=== PATIENT | female | born 1950 | race Caucasian/White ===

== ENCOUNTER 2020-02-12 17:01 | Emergency (ER) | payer MEDICARE, BC, SELFPAY ==
--- NOTE | ~2020-02-12 | US_ITS ---
EXAMINATION:US venous doppler LE RT INDICATION:Right leg swelling TECHNIQUE: Multiple grayscale, color flow and Doppler images of the right lower extremity deep venous systems were obtained and reviewed. COMPARISON:12/31/2018 FINDINGS: The common femoral, superficial femoral and popliteal veins demonstrate normal respiratory variation, augmentation and compressibility. Color flow is also seen within the posterior tibial, gr eater saphenous and profunda veins. The peroneal vein not visualized. IMPRESSION: 1: No lower extremity deep venous thrombosis. Reviewed, dictated and finalized at location A.
[2020-02-12 17:12] VITALS: BP 148/75; PULSE 78; RESP 20; TEMP 36.6; O2SAT 95
[2020-02-12 18:30] VITALS: BP 142/70; PULSE 70; RESP 14; TEMP 36.8; O2SAT 99
--- NOTE | 2020-02-12 19:01 | ED.EXTPRO ---
HPI - Extremity Problem General Chief complaint: Extremity Problem,Nontraumatic Stated complaint: R LEG SWELLING Time Seen by Provider: 02/12/20 19:01 Source: patient and family Mode of arrival: wheelchair Limitations: no limitations History of Present Illness HPI Narrative: Patient is a 6-year-old female with a history of end-stage renal disease, on nightly peritoneal dialysis, kidney failure, congestive heart failure, who presents for evaluation of right lower leg swelling. Patient reports her right leg has been swollen since Wednesday, worsening swelling over the past 72 hours. She reports a tightness in the right lower leg. She denies redness, rash, blister, or injury. Patient was seen by her ditto machine operator and placed on diuretics. She started that medication today. She has not noticed much improvement in the edema at this point. She denies chest pain, shortness of breath or weakness. No fever or chills. Related Data Allergies Allergy/AdvReac Type Severity Reaction Status Date / Time ciprofloxacin Allergy Unknown Verified 07/20/18 19:10 Review of Systems Review of Systems: Narrative: CONSTITUTIONAL: Denies fever, chills, or sweats. CARDIOVASCULAR: Denies chest pain, palpitations, reports right lower extremity swelling RESPIRATORY: Denies cough or dyspnea. GASTROINTESTINAL: Denies abdominal pain, nausea, vomiting, or diarrhea. GENITOURINARY: Denies dysuria or hematuria. SKIN: Denies rash or itching. MUSCULOSKELETAL: Denies back pain, joint pain, or myalgia. NEUROLOGIC: Denies headache, numbness, or weakness. [facility] Past Medical History Medical History Arthritis Back pain CAD (coronary artery disease) Cataracts, bilateral CHF (congestive heart failure) CVA (cerebral vascular accident) Diabetes Dialysis patient peritoneal dialysis End stage renal disease HLD (hyperlipidemia) HTN (hypertension) Sleep apnea UTI (urinary tract infection) Surgical History Surgical History History of bilateral knee replacement Hx of appendectomy Hx of cataract surgery Hx of cholecystectomy Social History Social History Smoking status: Former smoker Gender identity (if verbalized by the patient): Female Exam Narrative: Exam Narrative: GENERAL: Awake, alert, conversant HEAD: Normocephalic, atraumatic. EYES: PERRLA and EOMI. ENT: Nares clear, no rhinorrhea or epistaxis. Mucous membranes moist. NECK: Supple. CHEST: No respiratory distress, breathing even and non labored HEART: Regular rate, sinus rhythm ABDOMEN:Non distended, non tender EXTREMITIES: Normal range of motion. Bilateral lower extremity edema, pitting, 2+ on the right to the right knee, left lower leg 1+ edema to the midshin, no warmth, negative Homans sign, no ecchymoses, no abscess SKIN: Warm, dry, no rash. NEURO:No focal deficits. Alert and oriented x3 Course Vital Signs Vital signs: Vital Signs Temperature 36.6 C 02/12/20 17:12 Pulse Rate 78 02/12/20 17:12 Respiratory Rate 20 02/12/20 17:12 Blood Pressure 148/75 H 02/12/20 17:12 Pulse Oximetry 95 02/12/20 17:12 Temperature 36.8 C 02/12/20 18:30 Pulse Rate 74 02/12/20 19:25 Respiratory Rate 18 02/12/20 19:25 Blood Pressure 162/73 H 02/12/20 19:25 Pulse Oximetry 93 02/12/20 19:25 MDM - Extremity (Nontraumatic) MDM Narrative Medical decision making narrative: Patient presented for evaluation of worsening right lower extremity edema. On exam, there is pitting edema to the bilateral lower extremities, it is pitting, and this would be most consistent with fluid that is likely related to the patient's congestive heart failure and nightly peritoneal dialysis. Patient has recently started Lasix today, and was referred here by the patient's ditto machine operator to ensure she did not have a blood clot. DVT ultrasound study
[2020-02-12 19:25] VITALS: BP 162/73; PULSE 74; RESP 18; O2SAT 93
== END 2020-02-12 19:35 | disposition home or self-care (01) ==
PROVIDERS: Emergency Provider Emergency Medicine; PCP Internal Medicine
DX: R60.0 Localized edema (principal); E11.22 Type 2 diabetes mellitus with diabetic chronic kidney disease; I13.2 Hypertensive heart and chronic kidney disease with heart failure and with stage 5 chronic kidney disease, or end stage renal disease; N18.6 End stage renal disease; I50.9 Heart failure, unspecified; Z99.2 Dependence on renal dialysis; Z87.891 Personal history of nicotine dependence; I25.10 Atherosclerotic heart disease of native coronary artery without angina pectoris; Z86.73 Personal history of transient ischemic attack (TIA), and cerebral infarction without residual deficits; E78.5 Hyperlipidemia, unspecified; Z87.440 Personal history of urinary (tract) infections; Z98.42 Cataract extraction status, left eye; Z98.41 Cataract extraction status, right eye; Z96.653 Presence of artificial knee joint, bilateral
CPT/HCPCS: 93971; 99284